=== PATIENT | male | born 1935 | race Caucasian/White ===

== ENCOUNTER 2021-01-28 19:06 | Emergency (ER) | payer MEDICARE ==
[2021-01-28 19:35] VITALS: BP 160/70; PULSE 64; TEMP 97.9; BMI 23.6
== END 2021-01-28 19:45 | disposition home or self-care (01) ==
LOC: FER 19:06
DX: T16.2XXA Foreign body in left ear, initial encounter (principal)
CPT/HCPCS: 99281-25

== ENCOUNTER 2021-12-13 17:50 | Emergency (ER) | payer OTHER ==
[2021-12-13 18:28] VITALS: TEMP 98.3; BMI 25.0
[2021-12-13 18:51] LABS: HEMATOCRIT 42.2 % (35.4-49); HEMOGLOBIN 14.3 G/dL (11.7-16.9); MCH 26.5 pg (25.7-33.7); MCHC 33.8 g/dl (32.0-35.9); MEAN CELL VOLUME 78.5 fl (80-96); MEAN PLT VOLUME 8.6 fl (7.5-11.1); PLATELET COUNT 203.3 10^3/uL (134-434); RBC 5.38 10^6/uL (4.00-5.60); RDW 17.9 % (11.9-15.9); WHITE BLOOD COUNT 9.8 10^3/uL (4.0-10.8)
[2021-12-13] MEDS ORDERED: ACETAMINOPHEN INJECTION 100 ML IVPB ONE (20:05)
[2021-12-13 20:11] LABS: CALCIUM 9.8 mg/dL (8.5-10.1)
[2021-12-13 20:12] LABS: ALBUMIN 3.7 g/dl (3.4-5.0); BLOOD UREA NITROGEN 35.8 mg/dL (7-18)
[2021-12-13 20:15] LABS: CREATININE 2.3 mg/dL (0.55-1.3)
[2021-12-13 20:17] LABS: BILIRUBIN,TOTAL 1.1 mg/dL (0.2-1); TOT PROT 6.9 g/dl (6.4-8.2)
[2021-12-13] MEDS ORDERED: ACETAMINOPHEN 1000 MG/100 ML BAG IVPB ONE (20:18)
[2021-12-13 20:47] VITALS: BP 123/93; PULSE 70
== END 2021-12-13 21:42 | disposition home or self-care (01) ==
LOC: FER 17:50
PROC: 3E033GC Introduction of Other Therapeutic Substance into Peripheral Vein, Percutaneous Approach (ICD-10-PCS; principal; 2021-12-13)
DX: R10.13 Epigastric pain (principal)
CPT/HCPCS: 36415; 74176-TC; 80053; 83690; 84484; 85027; 93005; 99285-25